=== PATIENT | male | born 1955 | race Caucasian/White ===

== ENCOUNTER 2017-03-08 20:16 | Emergency (ER) | payer BC ==
--- NOTE | ~2017-03-08 | CT16 ---
[facility] A Service of [facility] RADIOLOGY TEXT RESULTS PATIENT: FUNMILAYO BALBUENA LOCATION: SED : 57 UNIT #: [id number] AGE: [address]: Freda Torres MD SEX: M ORDER DR: [id number] [address] [address] [id number] E MR#: [id number] Acc #: [id number] NAME: FUNMILAYO BALBUENA : 1955 SEX: M STUDY DATE/TIME: 03/08/2017 21:32 UNIT: SED ROOM: STUDY DESCRIPTION: CT Angio Chest for PE Attending Physician: Freda Torres M.D. Ordering Physician: Freda Torres M.D. Primary Care Physician: Kleber Todd D.O. MEDICAL IMAGING REPORT This report is preliminary unless electronic signature is present. EXAM CT chest with contrast. HISTORY Sharp pain in stomach going up into the chest starting today. FINDINGS Axial images performed through the chest following IV contrast. 3-D coronal and sagittal reconstructed images were reviewed at a workstation. This CT exam was performed with one or more of the following radiation dose reduction techniques: automatic exposure control, adjustment of mA and/or kV according to patient size, and iterative reconstruction. Small amount of dependent atelectasis. Trachea and bronchi unremarkable. No evidence of embolus. Heart and aorta unremarkable except for coronary artery calcifications. Upper abdomen unremarkable. Osseous structures of thoracic inlet appear normal. IMPRESSION No acute intrathoracic abnormality identified. Dictated by... Eze Vann M.D. THIS IS AN ELECTRONICALLY VERIFIED REPORT Eze Vann M.D. at 03/09/2017 2:48 PM DAVID/bela TD: 03/08/2017 22:45 JOB #: [id number] [facility] A Service of [facility] RADIOLOGY TEXT RESULTS PATIENT: FUNMILAYO BALBUENA LOCATION: SED : 57 UNIT #: [id number] AGE: [address]: Freda Torres MD SEX: M ORDER DR: MEDICAL IMAGING REPORT Page 1 of 1
--- NOTE | ~2017-03-08 | CR72 ---
[facility] A Service of [facility] RADIOLOGY TEXT RESULTS PATIENT: FUNMILAYO BALBUENA LOCATION: SED : 57 UNIT #: [id number] AGE: [address]: Freda Torres MD SEX: M ORDER DR: [id number] [place] [id number] E MR#: [id number] Acc #: [id number] NAME: FUNMILAYO BALBUENA : 1955 SEX: M STUDY DATE/TIME: 03/08/2017 20:56 UNIT: SED ROOM: STUDY DESCRIPTION: CR Chest Single View Portable Attending Physician: Freda Torres M.D. Ordering Physician: Freda Torres M.D. Primary Care Physician: Kleber Todd D.O. MEDICAL IMAGING REPORT This report is preliminary unless electronic signature is present. EXAM Portable chest. HISTORY Sharp stomach pain. Pain going into chest today. History of acid reflux. FINDINGS Portable view of the chest demonstrates marked lordotic positioning. No infiltrates or effusions. Heart, mediastinum unremarkable, though the study is limited due to underpenetration. Overall suboptimal portable chest. No acute findings. Dictated by... Eze Vann M.D. THIS IS AN ELECTRONICALLY VERIFIED REPORT Eze Vann M.D. at 03/09/2017 2:47 PM Emily TD: 03/08/2017 21:43 JOB #: [id number] MEDICAL IMAGING REPORT Page 1 of 1
--- NOTE | ~2017-03-08 | CT2 ---
[facility] A Service of [facility] RADIOLOGY TEXT RESULTS PATIENT: FUNMILAYO BALBUENA LOCATION: SED : 57 UNIT #: [id number] AGE: [address]: Freda Torres MD SEX: M ORDER DR: [id number] [address] [address] [id number] E MR#: [id number] Acc #: [id number] NAME: FUNMILAYO BALBUENA : 1955 SEX: M STUDY DATE/TIME: 03/08/2017 21:15 UNIT: SED ROOM: STUDY DESCRIPTION: CT Abd and Pelv W Cont Attending Physician: Freda Torres M.D. Ordering Physician: Freda Torres M.D. Primary Care Physician: Kleber Todd D.O. MEDICAL IMAGING REPORT This report is preliminary unless electronic signature is present. EXAM CT abdomen and pelvis with contrast. HISTORY Sudden onset left-sided abdominal pain with nausea. Onset today. FINDINGS Axial images performed through the abdomen and pelvis following IV contrast. Multiplanar reconstructed images reviewed at a workstation. This CT exam was performed with one or more of the following radiation dose reduction techniques: automatic exposure control, adjustment of mA and/or kV according to patient size, and iterative reconstruction. ABDOMEN: Lung bases unremarkable. Liver demonstrates mild fatty infiltration. Spleen and gallbladder appear normal. Pancreas and adrenal glands unremarkable. There is a fat attenuation lesion off the midpole right kidney measuring about 2 cm most likely represents an angiomyolipoma. Visualized GI tract remarkable for a few sigmoid diverticula. PELVIS: Bladder/prostate appear normal. Osseous structures remarkable for degenerative change lower lumbar spine. IMPRESSION 1. No acute intraabdominal or intrapelvic pathology. 2. 2 cm fat containing right renal lesion most compatible with an angiomyolipoma. 3. Few scattered colonic and sigmoid diverticula. No evidence of diverticulitis. Dictated by... Eze Vann M.D. [facility] A Service of [facility] RADIOLOGY TEXT RESULTS PATIENT: FUNMILAYO BALBUENA LOCATION: SED : 57 UNIT #: [id number] AGE: [address]: Freda Torres MD SEX: M ORDER DR: THIS IS AN ELECTRONICALLY VERIFIED REPORT Eze Vann M.D. at 03/09/2017 2:47 PM Emily TD: 03/08/2017 22:33 JOB #: [id number] MEDICAL IMAGING REPORT Page 1 of 1
--- NOTE | ~2017-03-08 | EKG ---
PATIENT: FUNMILAYO BALBUENA UNIT #: [id number] Ventricular Rate: 68 BPM Atrial Rate: 68 BPM P-R Interval: 116 ms QRS Duration: 96 ms Q-T Interval: 402 ms QTC Calculation(Bezet): 427 ms P S[place]: 34 degrees Calculated R S[place]: 6 degrees Calculated T Sligo: 25 degrees Diagnosis Line: Normal sinus rhythm Diagnosis Line: Normal ECG Diagnosis Line: No previous ECGs available Diagnosis Line: Confirmed by FLORY ROLLE MD ([id number]) on Diagnosis Line: 03/09/2017 4:47:20 PM INTERPRETING MD: AQUILINO VICKERS
[~2017-03-08 20:16] MED LIST: CLEOCIN HCL300 M1 PO; DEXILANT60 MG PO; TYLENOL #3 PO; VOLTAREN75 MG PO
[2017-03-08 20:48] LABS: BASOPHIL# 0.1 X10e3 (0-0.3); BASOPHIL% 1.1 % (0-2.5); EOSINOPHIL# 0.1 X10e3 (0-0.7); EOSINOPHIL% 1.6 % (0.0-7.0); HEMATOCRIT 46.6 % (38.0-50.0); HEMOGLOBIN 16.1 gm/dL (13.0-16.0); LYMPHOCYTE# 1.4 X10e3 (1.0-3.5); MEAN CELL VOLUME 88.6 FL (83-96); MEAN CORPUSCULAR HEMOGLOBIN 30.6 PG (28-34); MEAN CORPUSCULAR HGB CONC 34.6 g/dL (30-36); MEAN PLATELET VOLUME 8.3 FL (6.5-11.5); MONOCYTE# 0.4 X10e3 (0-1.0); MONOCYTE% 9.2 % (3.0-12.0); NEUTROPHIL# 2.7 X10e3 (1.5-7.1); NEUTROPHIL% 58.1 % (40-75); PLATELET COUNT 135 X10e3 (140-420); RED BLOOD COUNT 5.26 X10e (3.90-5.60); RED CELL DISTRIBUTION WIDTH 13.6 % (11.0-15.5); WHITE BLOOD COUNT 4.7 X10e3 (4.0-10.5)
[2017-03-08 20:50] LABS: DIFF IND NO
[2017-03-08 21:05] LABS: POC - CKMB 2.3 ng/mL (0.0-7.9); POC - TROPONIN <0.05 ng/mL (<=0.05)
[2017-03-08 21:07] LABS: ALBUMIN SERUM 4.5 g/dL (3.5-5.0); BILIRUBIN, DIRECT 0.2 mg/dL (0.0-0.2); BILIRUBIN,INDIRECT 0.5 mg/dL (0.0-0.9); BILIRUBIN,TOTAL 0.7 mg/dL (0.2-2.0); BUN/CREATININE RATIO 18.18; CALCIUM SERUM 8.8 mg/dL (8.4-10.2); CREATININE SERUM 1.1 mg/dL (0.6-1.4); GLOM FILT RATE Estimated 72.6 mL/min (>60); POTASSIUM 3.8 mmol/L (3.5-5.1)
[2017-03-08 22:42] LABS: POC - CKMB 1.5 ng/mL (0.0-7.9)
[2017-03-08 22:43] LABS: POC - TROPONIN <0.05 ng/mL (<=0.05)
== END 2017-03-09 00:08 | disposition home or self-care (01) ==
LOC: SED 20:16
PROVIDERS: Emergency Medicine
DX: K29.70 Gastritis, unspecified, without bleeding (principal); K21.9 Gastro-esophageal reflux disease without esophagitis; Z88.1 Allergy status to other antibiotic agents; Z88.8 Allergy status to other drugs, medicaments and biological substances; Z79.899 Other long term (current) drug therapy; F17.210 Nicotine dependence, cigarettes, uncomplicated; W19.XXXA Unspecified fall, initial encounter; Y92.009 Unspecified place in unspecified non-institutional (private) residence as the place of occurrence of the external cause
CPT/HCPCS: 36415; 71010; 71275; 74177; 80048; 80076; 82150; 82553; 83690; 84484; 85025; 93005; 96374; 96375; 96376; 99284; C9113; J1170; J2270; J2405; Q9967